=== PATIENT | male | born 2000 | race Caucasian/White ===

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

== ENCOUNTER → 2023-07-27 | Outpatient (CLI) | payer BC ==
[2023-07-27 10:38] LABS: BASO # 0.04 K/mm3 (0.02-0.10); HEMATOCRIT 47.3 % (42.0-52.0); HEMOGLOBIN 16.1 g/dL (13.5-18.0); LYMPH# 1.97 K/mm3 (1.50-4.00); MEAN CELL VOLUME 88 fl (78-100); MEAN CORPUSCULAR HEMOGLOBIN 30 pg (27-31); MEAN CORPUSCULAR HGB CONC 34 g/dL (33-37); MEAN PLATELET VOLUME 9.1 fl (7.4-10.4); NEU # 3.95 K/mm3 (1.40-6.50); PLATELET COUNT 269 K/mm3 (130-400); RED BLOOD COUNT 5.37 M/mm3 (4.20-5.60); RED CELL DISTRIBUTION WIDTH 12.1 % (11.5-14.5); WHITE BLOOD COUNT 6.8 K/mm3 (4.8-10.8)
[2023-07-27 10:44] LABS: ALBUMIN 4.4 g/dL (3.5-5.0)
[2023-07-27 10:46] LABS: CALCIUM 9.8 mg/dL (8.3-10.5)
[2023-07-27 10:47] LABS: TOTAL PROTEIN 7.6 g/dL (6.4-8.3)
[2023-07-27 10:49] LABS: TOTAL BILIRUBIN 0.6 mg/dL (0.2-1.2)
[2023-07-27 10:53] LABS: MAGNESIUM 2.07 mg/dL (1.60-2.60)
[2023-07-27 21:15] LABS: TESTOSTERONE 259 ng/dL (240-871)
== END ==
LOC: LAB 10:24
PROVIDERS: Internal Medicine
DX: G47.19 Other hypersomnia (principal); F41.8 Other specified anxiety disorders; E66.9 Obesity, unspecified; K90.9 Intestinal malabsorption, unspecified; R73.9 Hyperglycemia, unspecified

== ENCOUNTER → 2024-03-24 | Outpatient (CLI) | payer BC ==
[2024-03-24 16:11] LABS: BASO # 0.06 K/mm3 (0.02-0.10); EOS # 0.19 K/mm3 (0.04-0.40); EOS % 1.9 % (0.0-4.0); HEMATOCRIT 49.1 % (42.0-52.0); HEMOGLOBIN 16.1 g/dL (13.5-18.0); MEAN CELL VOLUME 93 fl (78-100); MEAN CORPUSCULAR HEMOGLOBIN 30 pg (27-31); MEAN CORPUSCULAR HGB CONC 33 g/dL (33-37); MEAN PLATELET VOLUME 9.7 fl (7.4-10.4); MONO # 0.71 K/mm3 (0.20-0.80); NEU # 6.55 K/mm3 (1.40-6.50); PLATELET COUNT 328 K/mm3 (130-400); RED BLOOD COUNT 5.29 M/mm3 (4.20-5.60); RED CELL DISTRIBUTION WIDTH 12.4 % (11.5-14.5); WHITE BLOOD COUNT 9.9 K/mm3 (4.8-10.8)
[2024-03-24 16:28] LABS: ALBUMIN 4.5 g/dL (3.5-5.0)
[2024-03-24 16:30] LABS: CALCIUM 9.9 mg/dL (8.3-10.5)
[2024-03-24 16:31] LABS: TOTAL PROTEIN 7.7 g/dL (6.4-8.3)
[2024-03-24 16:33] LABS: TOTAL BILIRUBIN 0.4 mg/dL (0.2-1.2)
[2024-03-24 17:03] LABS: PH-URINE 5.5 (5.0 - 8.0); URINE APPEARANCE CLEAR (CLEAR); URINE BILIRUBIN NEGATIVE (NEGATIVE); URINE BLOOD NEGATIVE (NEGATIVE); URINE COLOR YELLOW (YELLOW); URINE GLUCOSE NEGATIVE (NEGATIVE); URINE KETONE NEGATIVE (NEGATIVE); URINE LEUKOCYTE ESTERASE NEGATIVE (NEGATIVE); URINE NITRATE NEGATIVE (NEGATIVE); URINE PROTEIN(semi-quant) 1+ (NEGATIVE); URINE WBC 0-1 /hpf (0-3)
== END ==
LOC: LAB 15:53
PROVIDERS: Nurse Practitioner Family
DX: R03.0 Elevated blood-pressure reading, without diagnosis of hypertension (principal)

== ENCOUNTER → 2024-05-19 | Outpatient (CLI) | payer BC ==
[2024-05-23 05:38] LABS: ALDOSTERONE, SERUM 5.2 ng/dL (0.0-30.0)
== END ==
LOC: LAB 08:31
PROVIDERS: Family Medicine
DX: I10 Essential (primary) hypertension (principal)

== ENCOUNTER → 2024-06-03 | Outpatient (CLI) | payer BC | LOC: CARDREHAB 08:10 | DX: G47.19 Other hypersomnia (principal) | CPT/HCPCS: G0399 ==

== ENCOUNTER → 2024-08-27 | Outpatient (CLI) | payer BC ==
[2024-08-27 12:20] LABS: CALCIUM 10.4 mg/dL (8.3-10.5)
== END ==
LOC: LAB 11:59
PROVIDERS: Family Medicine
DX: I10 Essential (primary) hypertension (principal)